=== PATIENT | male | born 1955 ===

== ENCOUNTER 2017-05-24 12:51 | Day surgery (SDC) | payer OTHER ==
[2017-05-21 08:46] VITALS: BMI 22.3
[2017-05-24] MEDS ORDERED: Midazolam 2 MG/2 ML VIAL ONE (14:27)
[2017-05-26 11:37] VITALS: RESP 16; O2SAT 100
--- NOTE | 2017-05-27 12:26 | CATH ---
APPROVED REPORT Procedure(s) performed: Left Heart Catheterization Selective Right and Left Coronary Angiography HISTORY The patient is a 61 year-old male with a history of : tobacco history() , AND BRUGADA SYNDROM WITH 2 SYNCOPAL EVENTS. INDICATION The indication(s) include : palpitations, chest pain, arrhythmia, dyspnea, syncope. CASE TECHNIQUE The patient was brought electively to the Cardiac Catheterization Laboratory in a fasting state and was prepped and draped in a sterile manner. The right femoral groin was infiltrated with 2% Lidocaine subcutaneous anesthesia. A sheath was inserted into the right femoral artery without difficulty. Coronary angiography was performed using coronary diagnostic catheters. The left coronary system was accessed and visualized with a Diagnostic catheter. The right coronary system was accessed and visualized with a Diagnostic catheter. The left ventricle was accessed and visualized with a Diagnostic catheter. Left ventricular/Aortic Valve gradient assessed on pullback. Left ventriculogram was performed in REYES projection. Pre-demployment femoral angiogram was performed . Closure device was deployed with a 6 Fr Angioseal without any complications. The patient tolerated the procedure well and there were no complications associated with the procedure. Vessel Analysis The patient's coronary anatomy is right dominant. The left main coronary artery is a large size vessel without significant stenosis. The left main bifurcates to the left anterior descending and circumflex. The left anterior descending artery is a large size vessel without significant stenosis. The first diagonal branch is a large size vessel with stenosis. There is a 50% stenosis in the ostial segment. The second diagonal branch is a large size vessel without significant stenosis. The circumflex artery is a large size vessel without significant stenosis. The first obtuse marginal branch is a small size vessel without significant stenosis. The right coronary artery is a large size vessel with stenosis. There is a 30% stenosis in the mid segment. The right posterior descending artery is a medium size vessel with stenosis. There is a 50% stenosis in the ostial segment. The right posterolateral branch is a large size vessel without significant stenosis. Left Ventricle The left ventricle is normal in size with normal contractility. The left ventricular ejection fraction is estimated to be 55%. There was no gradient across the aortic valve upon pullback. Conclusion NON OBSTRUCTIVE MULTIVESSEL CAD Normal EF Recommendations Aggressive Medical Therapy Medical Therapy REFER FOR EPS
== END 2017-05-24 16:24 | disposition short-term general hospital (02) ==
LOC: C.CATHLAB 12:51
PROVIDERS: ATTEND Internal Medicine Cardiovascular Disease
DX: I25.10 Atherosclerotic heart disease of native coronary artery without angina pectoris (principal); Z87.891 Personal history of nicotine dependence; R55 Syncope and collapse